=== PATIENT | female | born 1945 ===

== ENCOUNTER 2017-11-23 06:08 | Day surgery (SDC) | payer MEDICARE ==
[2017-11-13 06:59] VITALS: BMI 26.6
[2017-11-23] MEDS ORDERED: ceFAZolin 1 gm in NS 1 GM/100 ML BAG IVPB ONE (07:36)
[2017-11-23] MEDS ORDERED: Lidocaine Hydrochloride 15 ML INJ ONE (07:36)
[2017-11-23] MEDS ORDERED: Bupivacaine HCl 0.5% PF (30 ml) Inj ONE (07:36)
[2017-11-23] MEDS ORDERED: Propofol 10 mg/ml Inj (20 ML) ONE ×3 (07:47→10:08)
[2017-11-23] MEDS ORDERED: Midazolam 2 MG/2 ML VIAL ONE (07:47)
[2017-11-23] MEDS ORDERED: Bupivacaine 0.25% 20 ML INJ IJ ONE (09:31)
[2017-11-23] MEDS ORDERED: Dexamethasone 4 mg/1 ml ONE (09:31)
[2017-11-23] MEDS ORDERED: Oxycodone/Acetaminophen 5/325 mg Tab PO PRN ×2 (10:31)
[2017-11-23] MEDS ORDERED: HYDROmorphone 0.5 mg/0.5 ml ISec IVP PRN (10:34)
--- NOTE | 2017-11-23 10:39 | PCM.SURG1 ---
Surgeon's Initial Post Op Note - Surgeon's Notes Surgeon: Dr. Aydin Barnett DPM Maintenance Man: Dr. Obdulio Borja PGY-2; Dr. Bronson Vincent PGY-3; Dr. Alley Reeves PGY-2 Type of Anesthesia: IV Sedation, Local Anesthesia Administered By: Dr. Ethel MARTINO Pre-Operative Diagnosis: Left foot Hallux Abducto-valgus Operative Findings: See dictation. M: 2.0 10 mm fully threaded screw; 2.7 16 mm fully threaded screw; 2-0 vicryl, 3-0 vicryl, 4-0 vicryl, 4-0 nylon. I: Pre- op: 20 cc of 1:1 0.25% Marcain plain:1% Lidocaine plain; 10 cc of 0.25% Marcaine plain, 4 mg of dexamethasone - post-op Post-Operative Diagnosis: Same Operation Performed: 1). Left Deniz Bunionectomy. 2). EHL tendon Lengthening. 3). Guzman Specimen/Specimens Removed: Bone Estimated Blood Loss: EBL {In ML}: 0 Blood Products Given: N/A Drains Used: No Drains Post-Op Condition: Good Date of Surgery/Procedure: 11/23/17 Time of Surgery/Procedure: 10:43
[2017-11-23 12:08] VITALS: O2SAT 96
[2017-11-23 12:53] VITALS: BP 162/53; PULSE 86; RESP 20; TEMP 97.7
--- NOTE | 2017-11-23 15:21 | RAD ---
PROCEDURE: Left Foot Radiographs. HISTORY: s/p left foot surgery COMPARISON: Left foot radiographs dated 11/20/2017 FINDINGS: BONES: Interval bunionectomy and fracture of the 1st metatarsal with screw fixation. Resection of the 1st proximal phalanx proximal epiphysis. JOINTS: Lateral subluxation of the 1st digit at the level of the metatarsophalangeal joint. SOFT TISSUES: Normal. OTHER FINDINGS: None. IMPRESSION: Postsurgical changes with interval bunionectomy and screw fixation of 1st metatarsal fracture and lateral 1st digit subluxation as described above.
--- NOTE | 2017-11-26 07:24 | OP ---
PROCEDURE DATE: 11/23/2017 SURGEON: Aydin aBrnett DPM REEL OPERATOR: Obdulio Borja DPM, PGY2; Olu Vincent DPM, PGY3; Alley Reeves DPM, PGY2 TYPE OF ANESTHESIA: IV sedation with local. PREOPERATIVE DIAGNOSIS: Left foot hallux abductovalgus. POSTOPERATIVE DIAGNOSIS: Left foot hallux abductovalgus. PROCEDURES: 1. Left Deniz bunionectomy. 2. EHL tendon lengthening. 3. Guzman arthroplasty. INDICATIONS: The patient is a 72-year-old female with the above diagnosis. The patient has exhausted all conservative treatment at this time and now requests surgical intervention. The patient signed the consent after careful explanation of the risks, benefits, complications, and alternatives for the surgical procedure. No guarantees were given nor implied. PREPARATION: The patient was brought into the operating room and placed on the operating room table in supine position. A time-out was performed for identification of the correct patient and the procedure. The patient received a total of 20 mL of 1:1 mixture of 0.25% Marcaine plain, 1% lidocaine plain in local block type fashion to the left medial forefoot. Once the local anesthesia was achieved, the left foot was then prepped and draped in normal sterile manner. Pneumatic ankle tourniquet was applied to the left ankle. DESCRIPTION OF PROCEDURE: PROCEDURE #1: Attention was then directed to the dorsomedial aspect of the first metatarsal head on the left foot where an approximately 6 cm linear longitudinal incision was made medial and parallel to the tendon of the extensor hallucis longus and involved the contour of the deformity. The incision was deepened through the subcutaneous tissue using the sharp and blunt dissection. Care was taken to identify and retract all vital neurovascular structures. All bleeders were cauterized and ligated as necessary. At this time, an inverted L type capsulotomy was performed over the dorsal aspect of the first metatarsal phalangeal joint. The periosteal and capsular structures were then read and carefully dissected off their osseous attachment and reflected medially and laterally thus exposing the metatarsal head into the operative site. Next, utilizing an oscillating bone saw, the dorsal and medial prominences were resected and passed from the operative field. Attention was then redirected to the medial aspect of the first metatarsal head where a through and through V type osteotomy was created in the metaphyseal region of the bone utilizing an oscillating bone saw. The apex of the osteotomy pointed distally with the arms pointing distal plantarly and proximal dorsally. The dorsal arm was made longer to accommodate the internal fixation. Upon completion of the osteotomy, the capital fragment was distracted and shifted laterally into the more corrected position and impacted up on the first metatarsal shaft. At this time, one 0.045 inch K-wire was driven from dorsal to plantar cross the osteotomy site to serve as a temporary fixation. Following standard AO principles and technique, a 2 x 10 mm and 2.7 x 16 mm cortical screw was inserted in their plates across the osteotomy site with an excellent compressions noted. The K-wire was removed at this time. Attention was then directed to the remaining medial bone shelf which was resected utilizing the oscillating bone saw and passed from the operative site. Correction of the deformity was assessed at this time and it was noted to be excellent. At this time, C-arm was utilized to assess the position of the capital fragment. PROCEDURE #2: Extensor hallucis longus tendon lengthening: At this time, attention was directed to the extensor hallucis longus tendon. A Ribbon retractor was inserted inferior to the tendon to stabilize the tendon. At this type V-type incision was made over the tendon and lengthening was performed. A 2-0 Vicryl was utilized to repair the EHL tendon at this time. Intraoperative passive hallux range of motion was performed to assess integrity of the tendon which was noted to be excellent. PROCEDURE #3: Guzman arthroplasty: Now the attention was directed towards the base of the phalanx. Approximately 4 mm distal to the base of the proximal phalanx was resected using oscillating bone saw. Resected bone was then freed from the plantar attachment using the #15 blade. At this time, C-arm was utilized again to assess the final intraop bone position prior to the wound closure. Surgical site was then flushed with copious amount of sterile saline solution. The periosteum and capsular structures were then reapproximated and coapted utilizing #2-0 and #3-0 Vicryl. Redundant capsular tissues were resected as necessary. The subcutaneous tissues were then reapproximated and coapted using 4-0 Vicryl. The skin was then reapproximated and coapted utilizing #4-0 nylon in a horizontal suture technique. Surgical site was then dressed with betadine-soaked Adaptic, 4 x 4, Kerlix, and Gatito. Tourniquet was let down at 120 minutes. POSTOPERATIVE CONDITION: The patient tolerated the anesthesia and procedure well and was escorted to the recovery room with vital signs stable and neurovascular status intact to the left foot. The patient will remain weightbearing as tolerated to the heel in a surgical shoe using the rolling walker. The patient will follow up with Dr. Barnett at his office next week, on Thursday. Obdulio Borja DPM Aydin Barnett DPM
== END 2017-11-23 12:50 | disposition home or self-care (01) ==
LOC: C.SDS 06:08
PROVIDERS: ATTEND Podiatrist
DX: M20.12 Hallux valgus (acquired), left foot (principal)
CPT/HCPCS: 28296; 73630; 88304; 88311; 97116; 97161; C1713; G8978; G8979; G8980; J0690; J1100; J2250; J2704; J3010